=== PATIENT | male | born 1980 | race Caucasian/White ===

== ENCOUNTER 2016-11-12 15:57 | Emergency (ER) | payer OTHER ==
[2016-11-12 17:26] LABS: URINE BILIRUBIN 1+ (NEGATIVE); URINE BLOOD 1+ (NEGATIVE); URINE GLUCOSE (UA) NORMAL (NORMAL); URINE KETONE TRACE (NEGATIVE); URINE LEUKOCYTE ESTERASE TRACE (NEGATIVE); URINE NITRATE NEGATIVE (NEGATIVE); URINE PROTEIN 1+ (NEGATIVE)
[2016-11-12 17:54] LABS: URINE MUCUS 3+; URINE RBC >20 /[HPF] (0-2); URINE SQUAMOUS EPITHELIAL CELL 0-10 /[HPF] (NONE SEEN); URINE WBC 0-5 /[HPF] (0-3)
== END 2016-11-12 19:28 | disposition home or self-care (01) ==
LOC: ER 15:57
PROVIDERS: Emergency Medicine
DX: S30.0XXA Contusion of lower back and pelvis, initial encounter (principal); S20.229A Contusion of unspecified back wall of thorax, initial encounter; S60.212A Contusion of left wrist, initial encounter; V86.59XA Driver of other special all-terrain or other off-road motor vehicle injured in nontraffic accident, initial encounter; E78.00 Pure hypercholesterolemia, unspecified; M54.5 Low back pain; M54.6 Pain in thoracic spine; Z88.2 Allergy status to sulfonamides; Z79.899 Other long term (current) drug therapy
CPT/HCPCS: 29125; 72125; 72128; 72131; 73110; 81001; 96372; 99284-25